=== PATIENT | female | born 1950 | race Caucasian/White ===

== ENCOUNTER → 2016-09-05 | Outpatient (CLI) | payer OTHER ==
[~2016-09-05] MED LIST: ALBU0.08 INH; BENZ0.5T9 PO; BISA10SU7 PR; BRIM0.15 OP; DPKSR/500 PO; HALO0.5T9 PO; MIRT15TA3 PO; NZRCR EXT; ZOLP10TA PO
--- NOTE | 2016-09-05 14:57 | MAMMOGRAPHY REPORT ---
BILATERAL DIGITAL SCREENING MAMMOGRAM WITH CAD: 09/05/2016 CLINICAL HISTORY: Routine screening. Patient has no complaints. TECHNIQUE: Bilateral CC, MLO and repeat left MLO views were obtained. Current study was also evalua alan with a Computer Aided Detection (CAD) system. COMPARISON: Comparison is made to exams dated: 09/01/2014 mammogram, 07/18/2012 mammogram, 06/13/2011 m ammogram, 06/06/2010 mammogram, 06/03/2009 mammogram - [facility], and 03/17/2008. BREAST COMPOSITION: There are scattered areas of fibroglandular density in both breasts. FINDINGS: The exam is suboptimal due to inability of the patient to tolerate positioning, particula rly with the left MLO view and she was held for the exam. There are stable benign coarse calcificat ions within the left breast. Mild vascular calcification bilaterally. No suspicious mass, microsoft solutions architect ural distortion or cluster of new, suspicious microcalcifications is seen. IMPRESSION: ACR BI-RADS CATEGORY 2: BENIGN There is no mammographic evidence of malignancy. A 1 year screening mammogram is recommended. The p atient will receive written notification of the results. Approximately 10% of breast cancers are not detected with mammography. A negative mammographic repor t should not delay biopsy if a clinically suggestive mass is present. Yoselin Blanco M.D. ay/:09/05/2016 14:40:46 Attending Technologist: Carina Goyal RT(R)(M), [facility] Accounts Payable Accountant: Laina Tyson RT(R)(M), [facility] letter sent: Normal 1/2 BI-RADS Code: ACR BI-RADS Category 2: Benign
== END | disposition home or self-care (01) ==
LOC: C.MAMM 13:12
PROVIDERS: ATTEND Nurse Practitioner Family
DX: Z12.31 Encounter for screening mammogram for malignant neoplasm of breast (principal)

== ENCOUNTER → 2017-01-17 | Outpatient (CLI) | payer OTHER ==
[2017-01-17 12:26] LABS: BASO % 0.4 %; BASO ABS # 0.03 K/uL (0-0.2); COMPLETE YES; HEMATOCRIT 43.6 % (37-47); IG% 0.4 %; LYMPH % 42.1 %; LYMPH ABS # 2.85 K/uL (1.2-3.4); MEAN CELL VOLUME 100.5 fL (80-100); MEAN CORPUSCULAR HEMOGLOBIN 34.6 pg (25-34); MEAN CORPUSCULAR HGB CONC 34.4 g/dl (32-36); MEAN PLATELET VOLUME 10.3 fL (7.4-10.4); MONO % 8.6 %; NEUT % 47.5 %; PLATELET COUNT 195 K/uL (130-400); RED BLOOD COUNT 4.34 M/uL (4.2-5.4); WHITE BLOOD COUNT 6.77 K/uL (4.8-10.8)
[2017-01-17 13:09] LABS: ALT/SGPT 18 U/L (12-78); AST/SGOT 13 U/L (15-37); BLOOD UREA NITROGEN 13 mg/dl (7-18); BUN/CREATININE RATIO 19.9 (10-20); CALCIUM 8.9 mg/dl (8.5-10.1); CARBON DIOXIDE 29 mmol/L (21-32); CHLORIDE 104 mmol/L (98-107); CREATININE 0.66 mg/dl (0.60-1.20); GLUCOSE 97 mg/dl (70-99); POTASSIUM 4.4 mmol/L (3.5-5.1); SODIUM 139 mmol/L (136-145)
[2017-01-17 13:20] LABS: ALB/GLOB RATIO 0.8 (0.9-2); ALKALINE PHOSPHATASE 74 U/L (45-117); CHOLESTEROL 231 mg/dl (0-200); CHOLESTEROL/HDL RATIO 5.8; HDL CHOLESTEROL 40 mg/dl; LDL CHOLESTEROL CALCULATED 121 mg/dl; TRIGLYCERIDES 350 mg/dl (0-150); VERY LOW DENSITY LIPOPROT CALC 70 mg/dl
== END | disposition home or self-care (01) ==
LOC: C.LABPVFM 08:52
PROVIDERS: ATTEND Nurse Practitioner Family
DX: Z79.899 Other long term (current) drug therapy (principal); R32 Unspecified urinary incontinence; E66.9 Obesity, unspecified; E78.00 Pure hypercholesterolemia, unspecified; E03.9 Hypothyroidism, unspecified

== ENCOUNTER → 2017-01-24 | Outpatient (CLI) | payer OTHER ==
[2017-01-24 17:57] LABS: URINE APPEARANCE CLEAR (CLEAR); URINE BILIRUBIN NEG (NEG); URINE COLOR DK YELLOW; URINE EPITHELIAL CELL AUTO >30 /lpf (0-5); URINE NITRITE NEG (NEG); URINE PH 6.5 (4.5-7.5); URINE SPECIFIC GRAVITY 1.024 (1.000-1.030); UROBILINOGEN NEG (NEG)
[2017-01-24 18:08] LABS: MANUAL MICROSCOPIC REQUIRED? NO; REVIEW REQ? YES
== END | disposition home or self-care (01) ==
LOC: C.LABPVFM 12:15
PROVIDERS: ATTEND Nurse Practitioner Family
DX: N39.41 Urge incontinence (principal)

== ENCOUNTER 2024-05-21 21:24 | Inpatient (IN) ==
[2024-05-21 22:04] LABS: Basophils # (auto) 0.02 K/uL (0.00-0.20); Basophils % (auto) 0.3 %; Eosinophils # (auto) 0.02 K/uL (0.00-0.50); Eosinophils % (auto) 0.3 %; Hematocrit (blood only) 39.2 % (37.0-47.0); Hemoglobin 12.7 g/dl (12.0-16.0); Immature Granulocytes # (auto) 0.04 K/uL (0.01-0.20); Immature Granulocytes % (auto) 0.7 %; Lymphocytes % (auto) 32.8 %; Mean Corpuscular Hemoglobin 32.2 pg (25.0-34.0); Mean Corpuscular Hgb Conc 32.4 g/dL (32.0-36.0); Mean Corpuscular Volume 99.5 fL (80.0-100.0); Mean Platelet Volume 10.1 fL (9.4-12.4); Monocytes % (auto) 13.8 %; Neutrophils # (auto) 3.01 K/uL (1.40-6.50); Neutrophils % (auto) 52.1 %; Platelet Count 195 K/uL (130-400); RDW Coefficient of Variation 15.2 % (11.5-14.5); RDW Standard Deviation 56.6 fL (36.4-46.3); Red Blood Count 3.94 M/uL (4.20-5.40); White Blood Count 5.79 K/ul (4.8-10.8)
[2024-05-21 22:24] LABS: Alanine Aminotransferase 16 U/L (7-52); Albumin Level 3.6 gm/dl (3.4-5.0); Alkaline Phosphatase 83 U/L (34-104); Anion Gap 8 (3-11); Aspartate Aminotransferase 25 U/L (13-39); BUN Creatinine Ratio 33.8 (10-20); Bilirubin,Total 0.3 mg/dl (0.2-1.0); Blood Urea Nitrogen 24 mg/dl (6-23); Calcium 8.2 mg/dl (8.6-10.3); Carbon Dioxide 26 mmol/L (21-32); Chloride 105 mmol/L (98-107); Creatinine Clr Calc Pharmacy 70.2 ml/min; Glucose 184 mg/dl (70-99(Fasting)); Sodium 139 mmol/L (136-145); Total Protein 6.5 gm/dl (6.0-8.3); Troponin I High Sensitivity 7.4 pg/ml (0-14)
[2024-05-21] MEDS: SODIUM CHLORIDE 0.9% 1,000 ML IV ONE (22:37)
[2024-05-21] MEDS: PIPERACILLIN/TAZOBACTAM 4.5 GM/100 ML BAG IV ONE (22:37)
--- NOTE | 2024-05-21 22:38 | History & Physical Report ---
"Date of Service May 21, 2024 Assessment & Plan (1) Sepsis: (2) Influenza A: (3) Acute hypoxic respiratory failure: (4) DM2 (diabetes mellitus, type 2): (5) GERD (gastroesophageal reflux disease): (6) Hypertension: (7) Schizoaffective disorder: Plan Aziza is a 74F w/ PMH of DM2, GERD, HTN, schizoaffective disorder, hypothyroidism, HLD, and urinary incontinence who presents for evaluation of generalized illness. Sepsis | Influenza A w/ AHRF - Patient with 3 days of congestion, rhinorrhea, cough and fatigue - SIRS positive: Tachycardia and tachypnea noted Now hemodynamically stable on 1L NS No leukocytosis, afebrile Urine and blood cultures obtained - Lactate 2.5, procal negative, MRSA nares ordered - Respiratory Biofire positive for Influenza A - CXR w/ hilar congestion vs infiltrate Suspect patient is aspiration risk, potential explanation - Examination with bilateral expiratory crackles at bases Changes, but does not resolve w/ cough - S/p Zosyn in ED, will continue empirically for sepsis coverage - Supportive measures for Flu A Tamiflu deferred as patient is > 48h from symptom onset Tylenol PRN Mucinex BID Duoneb PRN O2 supplementation PRN - No prior Echocardiogram or HFrEF noted LR ordered at 125 ml x 2 bags for fluid resuscitation in sepsis New systolic murmur on exam, Echocardiogram ordered for further evaluation Mental Health (Anxiety, Schizoaffective) - Continue home medications as prescribed Constipation - Continue home medications, held Loperamide GERD - Continue home PPI - Antiemetics PRN DM2 - Home medications held - BSG checks ACHS w/ SSI inpatient - AM A1c Glaucoma - Continue home drops Code: Full FENGI: IVF, HH/DM2 DVT: SCD Dispo: Med/Tele History of Present Illness Chief Complaint: Illness Primary Care Provider: BETZAIDA Marcum Aziza is a 74F w/ PMH of DM2, GERD, HTN, schizoaffective disorder, hypothyroidism, HLD, and urinary incontinence who presents for evaluation of generalized illness. Stared Sunday w/ cough and chest cold/congestion Has continued to progress throughout week Living at [facility] in [place] Noted to have Flu and PNA going around the facility Had a fever tonight at facility and was sent in Intermittent dyspnea noted at home Occasional chest discomfort (pressure), no radiation Has congestion and rhinorrhea Endorses nausea no emesis Not eating and drinking well Feels more constipation Urinating regularly w/o dysuria or frequency No changes in home medications Daughter at bedside for history support Allergies Allergy/AdvReac Type Severity Reaction Status Date / Time risperidone [From Risperdal] Allergy Unknown Verified 04/07/24 15:06 Home Medications Medication Instructions Recorded Confirmed Type acetaminophen 500 mg tablet 1,000 mg (2 x 500 mg) PO Q8H PRN 08/09/23 05/22/24 Rx pain #30 tabs benztropine 1 mg tablet 1 mg PO BID parkinsons #180 tabs 08/09/23 05/22/24 Rx calcium 600 mg (as 1 tab PO BID 08/09/23 05/22/24 History carbonate)-vitamin D3 10 mcg (400 unit) tablet (Calcium 600 + D(3)) divalproex 500 mg tablet,delayed 500 mg PO BID mood disorder #180 08/09/23 05/22/24 Rx release tabs docusate sodium 100 mg capsule 100 mg PO BID Constipation 08/09/23 05/22/24 History loratadine 10 mg tablet 10 mg PO DAILY allergy symptoms 08/09/23 05/22/24 Rx #30 tabs omega-3s 300 up-kbf-jop-other 1 cap PO DAILY supplement #30 caps 08/09/2305/10 Rx [id number] oil 1,000 mg capsule ([place]-3 Fish Oil) simethicone 125 mg chewable tablet 125 mg PO TID PRN gas #90 tabs 08/09/23 05/22/24 Rx travoprost 0.004 % eye drops 1 drp ophthalmic (eye) HS Glaucoma 08/09/23 05/22/24 History (Travatan Z) loperamide 2 mg capsule (Imodium 2 mg PO Q6H PRN loose stool #20 11/15/23 05/22/24 Rx A-D) caps prochlorperazine maleate 10 mg 10 mg PO Q8H nausea and vomiting 11/15/23 05/22/24 Rx tablet (Compazine) #20 tabs psyllium husk 3.4 gram/5.4 gram 1 tbsp PO DAILY #660 grams 01/14/24 05/22/24 Rx oral powder (Metamucil) levothyroxine 50 mcg tablet 50 mcg PO DAILY thyroid #90 tabs 02/05/24 05/22/24 Rx celecoxib 100 mg capsule 100 mg PO BID #60 caps 02/21/24 05/22/24 Rx mirabegron 50 mg tablet,extended 50 mg PO DAILY overactive bladder 02/21/24 05/22/24 Rx release 24 hr (Myrbetriq) #30 tabs omeprazole 20 mg capsule,delayed 20 mg PO BID #60 caps 02/21/24 05/22/24 Rx release atorvastatin 80 mg tablet 80 mg PO DAILY cholesterol #30 tabs 04/17/24 05/22/24 Rx dorzolamide 22.3 mg-timolol 6.8 1 drp ophthalmic (eye) BID 05/22/24 05/22/24 History mg/mL eye drops haloperidol 1 mg tablet 1 mg PO UD 05/22/24 05/22/24 History losartan 50 mg tablet 50 mg PO DAILY 05/22/24 05/22/24 History mirtazapine 30 mg tablet 30 mg PO DAILY 05/22/24 05/22/24 History polyethylene glycol 3350 17 17 g PO DAILY constipation 05/22/24 05/22/24 History gram/dose oral powder (Miralax) semaglutide 7 mg tablet (Rybelsus) 7 mg PO DAILY 05/22/24 05/22/24 History sennosides 8.6 mg tablet (senna) 8.6 mg PO DAILY PRN constipation 05/22/24 05/22/24 History Past Med/Surg History Problem List (Updated 05/22/24 @ 00:13 by Trina Bee PA-C) CAP (community acquired pneumonia) (Acute) Acute hypoxic respiratory failure (Acute) Influenza A (Acute) Sepsis (Acute) Peripheral edema UTI (urinary tract infection), uncomplicated Gastroenteritis Urinary incontinence Cognitive change Left hip pain Allergic rhinitis DM2 (diabetes mellitus, type 2) Constipation Chronic low back pain Facet arthritis of lumbar region GERD (gastroesophageal reflux disease) (Chronic) Arthritis Abdominal hernia (Chronic) Intermittent low back pain Hypertension Obesity Degenerative arthritis of knee, bilateral Schizoaffective disorder (Chronic) followed by psych Christy Clear Hypercholesterolemia (Chronic) Hypothyroidism (Chronic) Medical History History of anesthesia reaction Seizure Uterine cancer Osteopenia Gait disturbance Depression Surgical History History of colonoscopy History of cataract surgery History of bilateral salpingo-oophorectomy (BSO) History of hysterectomy Family History Father Cancer Heart disease Hypertension Stroke Prostate cancer Aunt Breast cancer Denies family history of Ovarian cancer Myocardial infarction Colorectal cancer Social History Smoking Status: Never smoker Second Hand Exposure: No; Do You Dip or Chew Tobacco: No; Hx Alcohol Use: No Hx Substance Use: No Preferred Language: Vincentian Communication Ability: Effective Communication Ability Comment: pt is able to sign own consents Visual Impairment: No Limitations Human Capital Analyst Required: No Beliefs That Will Affect Care: None marital status: / Current Living Situation: Personal Care Facility Current Living Situation Comment: Lives at [facility] current occupational status: retired Other Information That Helps Us Care for You: No Feels Safe at Home: Yes Safety Concerns: Feels Safe At This Time Childhood Exposure to Second-Hand Smoke: Yes Diet: regular caffeine: Yes Dental Care, Regularly: No Physical Activity Frequency: Does not Exercise Seatbelt Use: always Sunscreen Use: No Assistive Devices: Walker Physical Exam Physical Exam: Gen: NAD, non-toxic, somnolent but arousable to voice HEENT: Supple, no LAD, no thyromegaly, no JVD, dry mucous membranes Resp:Non-labored, scattered wheezing (resolves w/ cough), bilateral lower lobe crackles (unresolved w/ cough), oxymask intact CV:RRR, normal S1/S2, systolic murmur at RUSB Abd: Soft, non-distended, no TTP, normoactive bowels, no masses Extr: 2+ dp bilaterally, no edema Skin: No rashes lesions or erythema Results & Data Results & Data Vital Signs (Past 12 Hours) Vital Signs Temp Pulse Resp BP Pulse Ox O2 Del Method O2 Flow Rate 05/21/24 21:38 91 H 05/21/24 21:32 36.8 C 89 20 167/88 H 91 Nasal Cannula 4 Supervising Physician Co-Signing Physician Notes Attending addendum: I have physically seen this patient, have supervised the medical residents activities, and agree with the H&P unless as otherwise noted. Assessment and Plan: The patient is a 74-year-old female with past medical history including diabetes mellitus, GERD, hypertension, schizo affective disorder, hypothyroidism, hyperlipidemia, and urinary incontinence. She presents to the emergency department due to shortness of breath, dyspnea on exertion, and feeling generally ill and fatigued. #Sepsis/influenza A/acute respiratory failure with hypoxia- SIRS positive: Tachycardia/tachypnea/hypoxia Follow urine and blood cultures Lactate 2.5 MRSA swab Respiratory BioFire positive for influenza A Chest x-ray with infiltrate right lower lobe, suggestive of possible aspiration Received Zosyn 4.5 g IV in ED, and will continue every 8 hours DuoNebs every 2 hours as needed Oxygen supplementation to maintain pulse ox 92-94% Acetaminophen 650 mg by mouth every 6 hours as needed for mild pain or fever LR at 125 mL/h x 2 L Anxiety/schizoaffective disorder- Continue home medications: Divalproex, haloperidol, mirtazapine, benztropine Diabetes mellitus- Hold Rybelsus Place Accu-Cheks with NovoLog SSI as noted Hyperlipidemia- Continue atorvastatin Remaining orders and notations as noted Resident Activity Tracking Resident Involvement: Resident Care Provided Care Provided: Adult Hospital Medicine (4) DM2 (diabetes mellitus, type 2) Diabetes mellitus complication status: without complication Diabetes mellitus usp insulin use: without long term care pharmacist use Qualified Code(s): E11.9 - Type 2 diabetes mellitus without complications (6) Hypertension Hypertension type: primary hypertension Qualified Code(s): I10 - Essential (primary) hypertension (7) Schizoaffective disorder Schizoaffective disorder type: unspecified Qualified Code(s): F25.9 - Schizoaffective disorder, unspecified"
[2024-05-21 22:52] LABS: Adenovirus PCR Not Detected (NotDetected); Bordetella parapertussis PCR Not Detected (NotDetected); Bordetella pertussis PCR Not Detected (NotDetected); Chlamydia pneumoniae PCR Not Detected (NotDetected); Coronavirus 229E PCR Not Detected (NotDetected); Coronavirus CoV-2 (COVID19)PCR Not Detected (NotDetected); Coronavirus HKU1 PCR Not Detected (NotDetected); Coronavirus NL63 PCR Not Detected (NotDetected); Coronavirus OC43PCR Not Detected (NotDetected); Human Metapneumovirus PCR Not Detected (NotDetected); Influenza A (H3) PCR DETECTED (NotDetected); Influenza B PCR Not Detected (NotDetected); Mycoplasma pneumoniae PCR Not Detected (NotDetected); Parainfluenza Virus 1 PCR Not Detected (NotDetected); Parainfluenza Virus 2 PCR Not Detected (NotDetected); Parainfluenza Virus 3 PCR Not Detected (NotDetected); Parainfluenza Virus 4 PCR Not Detected (NotDetected); Respiratory Syncytial VirusPCR Not Detected (NotDetected); Rhinovirus/Enterovirus PCR Not Detected (NotDetected)
--- NOTE | 2024-05-21 23:08 | XRay Report ---
Exam(s): XR CXR 1 VIEW EXAM: XR Chest, 1 View CLINICAL HISTORY: Reason for exam: Sepsis. TECHNIQUE: Frontal view of the chest. COMPARISON: 04/06/2024 FINDINGS: Lungs: Right infrahilar congestion versus infiltrate. The left lung is clear. Pleural space: No pleural effusion. No pneumothorax. Heart: Unremarkable. No cardiomegaly. IMPRESSION: Right infrahilar congestion versus infiltrate. Electronically signed by: Andrew Prakash MD 05/21/24 23:07 PM
--- NOTE | 2024-05-22 00:06 | Emergency Department Note ---
History of Present Illness General Chief complaint: Illness Stated complaint: ILLNESS, FEVER, COUGH Time Seen by Provider: 05/21/24 21:33 History of Present Illness Aziza is a 74F w/ PMH of DM2, GERD, HTN, schizoaffective disorder, hypothyroidism, HLD, and urinary incontinence who presents for evaluation of generalized illness. Patient complains of fever, chills, cough, congestion and generalized illness for the past several days. EMS states that the sats were in the mid 80s and temperature was 101.9. custodial gave Tylenol prior to transport here. Patient is denies chest pain, abdominal pain, vomiting, diarrhea. Daughter is present for the history. Home Medications Medication Instructions Recorded Confirmed Type psyllium 3.4 gram/5.8 gram oral g PO 07/21/20 04/07/24 History powder acetaminophen 500 mg tablet 1,000 mg (2 x 500 mg) PO Q8H PRN 08/09/23 04/07/24 Rx pain #30 tabs alprazolam 0.25 mg tablet 0.25 mg PO DAILY PRN anxiety #10 08/09/23 04/07/24 Rx tabs benzocaine 15 mg-menthol 2.6 mg 1 zia mucous membrane .COMPLEX PRN 08/09/23 04/07/24 Rx lozenges (Cepacol Sore Throat sore throat #16 ea (benzocaine-menthol)) benztropine 1 mg tablet 1 mg PO BID parkinsons #180 tabs 08/09/23 04/07/24 Rx calcium 600 mg (as 1 tab PO BID 08/09/23 04/07/24 History carbonate)-vitamin D3 10 mcg (400 unit) tablet (Calcium 600 + D(3)) dextromethorphan polistirex 30 30 mg (5 mL) PO Q12H PRN cough #5 08/09/23 04/07/24 Rx mg/5 mL oral susp ext.release 12hr mL (Delsym 12 hour) dextromethorphan-guaifenesin 5 5 ml PO Q4H PRN cough #500 mL 08/09/23 04/07/24 Rx mg-100 mg/5 mL oral liquid (Mucinex Fast-Max DM Max) divalproex 500 mg tablet,delayed 500 mg PO BID mood disorder #180 08/09/23 04/07/24 Rx release tabs docusate sodium 100 mg capsule 100 mg PO BID Constipation 08/09/23 04/07/24 History dorzolamide 2 %-timolol 0.5 % (PF) 1 drp ophthalmic (eye) BID 08/09/23 04/07/24 Rx eye drops Glaucoma #10 mL haloperidol 0.5 mg tablet 0.5 mg PO QAM mood disorder #90 08/09/23 04/07/24 Rx tabs haloperidol 1 mg tablet 1 mg PO QPM mood disorder #30 tabs 08/09/23 04/07/24 Rx hydroxyzine pamoate 25 mg capsule 25 mg PO DAILY PRN anxiety #30 caps 08/09/23 04/07/24 Rx loratadine 10 mg tablet 10 mg PO DAILY allergy symptoms 08/09/23 04/07/24 Rx #30 tabs mirtazapine 15 mg tablet 15 mg PO HS mood disorder #90 tabs 08/09/23 04/07/24 Rx omega-3s 300 [id number]-[id number] 1 cap PO DAILY supplement #30 caps 08/09/23 04/07/24 Rx [id number] oil 1,000 mg capsule (Concepcion-3 Fish Oil) polyethylene glycol 3350 17 17 g PO DAILY PRN constipation 08/09/23 04/07/24 Rx gram/dose oral powder (Miralax) #119 grams sennosides 8.6 mg tablet (senna) 8.6 mg PO .QOD constipation #60 08/09/23 04/07/24 Rx tabs sennosides 8.6 mg tablet (senna) 8.6 mg PO QAM constipation #30 tabs 08/09/23 04/07/24 Rx simethicone 125 mg chewable tablet 125 mg PO TID PRN gas #90 tabs 08/09/23 04/07/24 Rx travoprost 0.004 % eye drops 1 drp ophthalmic (eye) HS Glaucoma 08/09/23 04/07/24 History (Travatan Z) diclofenac sodium 1 % topical gel 4 g topical TID pain #100 grams 11/15/23 04/07/24 Rx (Arthritis Pain (diclofenac)) loperamide 2 mg capsule (Imodium 2 mg PO Q6H PRN loose stool #20 11/15/23 04/07/24 Rx A-D) caps prochlorperazine maleate 10 mg 10 mg PO Q8H nausea and vomiting 11/15/23 04/07/24 Rx tablet (Compazine) #20 tabs fluticasone propionate 50 1 spray intranasal HS PRN allergy 12/14/23 04/07/24 Rx mcg/actuation nasal symptoms #16 grams spray,suspension furosemide 20 mg tablet 20 mg PO .COMPLEX #3 tabs 01/12/24 04/07/24 Rx psyllium husk 3.4 gram/5.4 gram 1 tbsp PO DAILY #660 grams 01/14/24 04/07/24 Rx oral powder (Metamucil) levothyroxine 50 mcg tablet 50 mcg PO DAILY thyroid #90 tabs 02/05/24 04/07/24 Rx celecoxib 100 mg capsule 100 mg PO BID #60 caps 02/21/24 04/07/24 Rx mirabegron 50 mg tablet,extended 50 mg PO DAILY overactive bladder 02/21/24 04/07/24 Rx release 24 hr (Myrbetriq) #30 tabs omeprazole 20 mg capsule,delayed 20 mg PO BID #60 caps 02/21/24 04/07/24 Rx release losartan 50 mg tablet 50 mg PO DAILY Hypertension #30 03/20/24 04/07/24 Rx tabs atorvastatin 80 mg tablet 80 mg PO DAILY cholesterol #30 tabs 04/17/24 Rx semaglutide 7 mg tablet (Rybelsus) See Rx Instructions .Route 05/12/24 Rx .COMPLEX #30 tabs Allergies Allergy/AdvReac Type Severity Reaction Status Date / Time risperidone [From Risperdal] Allergy Unknown Verified 04/07/24 15:06 Past Med/Surg History Problem List (Updated 05/22/24 @ 00:13 by Trina Bee PA-C) CAP (community acquired pneumonia) (Acute) Acute hypoxic respiratory failure (Acute) Influenza A (Acute) Sepsis (Acute) Peripheral edema UTI (urinary tract infection), uncomplicated Gastroenteritis Urinary incontinence Cognitive change Left hip pain Allergic rhinitis DM2 (diabetes mellitus, type 2) Constipation Chronic low back pain Facet arthritis of lumbar region GERD (gastroesophageal reflux disease) (Chronic) Arthritis Abdominal hernia (Chronic) Intermittent low back pain Hypertension Obesity Degenerative arthritis of knee, bilateral Schizoaffective disorder (Chronic) followed by psych Christy Clear Hypercholesterolemia (Chronic) Hypothyroidism (Chronic) Medical History History of anesthesia reaction Seizure Uterine cancer Osteopenia Gait disturbance Depression Surgical History History of colonoscopy History of cataract surgery History of bilateral salpingo-oophorectomy (BSO) History of hysterectomy Family History Father Cancer Heart disease Hypertension Stroke Prostate cancer Aunt Breast cancer Denies family history of Ovarian cancer Myocardial infarction Colorectal cancer Social History Smoking Status: Never smoker Second Hand Exposure: No; Do You Dip or Chew Tobacco: No; Hx Alcohol Use: No Hx Substance Use: No Preferred Language: Japanese Communication Ability: Effective Communication Ability Comment: pt is able to sign own consents Visual Impairment: No Limitations Farm [employer] Required: No Beliefs That Will Affect Care: None marital status: / Current Living Situation: Personal Care Facility Current Living Situation Comment: Lives at [facility] current occupational status: retired Feels Safe at Home: Yes Childhood Exposure to Second-Hand Smoke: Yes Diet: regular caffeine: Yes Dental Care, Regularly: No Physical Activity Frequency: Does not Exercise Seatbelt Use: always Sunscreen Use: No Review of Systems A total of 10 systems reviewed and were otherwise negative Physical Exam Vital Signs Vital Signs - 24 hr 05/21/24 21:32 05/21/24 21:38 05/21/24 22:07 Temperature 36.8 C Temperature Source Oral Pulse Rate 89 91 H Pulse Rate [Apical] Pulse Rate from SpO2 Sensor Respiratory Rate 20 Blood Pressure 167/88 H 145/73 H Blood Pressure [Right Arm] Blood Pressure Mean 114 77 Blood Pressure Mean [Right Arm] Blood Pressure Position Lying Pulse Oximetry 91 Oxygen Delivery Method Nasal Cannula Oxygen Flow Rate 4 Sepsis Recent Fever Within 48 Hours Yes Sepsis New/Unexplained Change in Mental Status N/A Sepsis Action Taken by Nursing No Action Required 05/21/24 22:15 05/21/24 22:36 05/21/24 22:42 Temperature Temperature Source Pulse Rate 83 82 83 Pulse Rate [Apical] Pulse Rate from SpO2 Sensor 83 82 83 Respiratory Rate 27 H 25 H 23 Blood Pressure 123/65 132/79 Blood Pressure [Right Arm] Blood Pressure Mean 84 96 Blood Pressure Mean [Right Arm] Blood Pressure Position Pulse Oximetry 95 98 98 Oxygen Delivery Method Oxymask Oxymask Oxygen Flow Rate 1 1 Sepsis Recent Fever Within 48 Hours Sepsis New/Unexplained Change in Mental Status Sepsis Action Taken by Nursing 05/21/24 22:45 05/21/24 22:45 05/21/24 22:45 Temperature Temperature Source Pulse Rate Pulse Rate [Apical] Pulse Rate from SpO2 Sensor Respiratory Rate Blood Pressure 130/90 130/90 130/90 Blood Pressure [Right Arm] Blood Pressure Mean 100 100 100 Blood Pressure Mean [Right Arm] Blood Pressure Position Pulse Oximetry Oxygen Delivery Method Oxygen Flow Rate Sepsis Recent Fever Within 48 Hours Sepsis New/Unexplained Change in Mental Status Sepsis Action Taken by Nursing 05/21/24 23:30 Temperature Temperature Source Pulse Rate Pulse Rate [Apical] 87 Pulse Rate from SpO2 Sensor Respiratory Rate 23 Blood Pressure Blood Pressure [Right Arm] 159/65 H Blood Pressure Mean Blood Pressure Mean [Right Arm] 96 Blood Pressure Position Pulse Oximetry 96 Oxygen Delivery Method Oxymask Oxygen Flow Rate 1 Sepsis Recent Fever Within 48 Hours Sepsis New/Unexplained Change in Mental Status Sepsis Action Taken by Nursing VITALS: Vitals are noted on the nurse's note and reviewed by myself. Vital signs reviewed. GENERAL: Elderly female who appears ill, nondiaphoretic, well-developed well- nourished. SKIN: The skin was without rashes, erythema, edema, or bruising. There is no tenting of the skin. Capillary reflex less than 2 seconds. HEAD: Normocephalic atraumatic. EARS: External auditory canals clear EYES: Pupils equal round and reactive to light and accommodation. Conjunctivae without injection, sclerae without icterus. Extraocular movements intact. NOSE: Patent, no discharge. MOUTH: Mucous membranes moist. Pharynx without erythema or exudate. Uvula midline. Airway patent. Tongue does not deviate. NECK: Supple without nuchal rigidity. No lymphadenopathy. No thyromegaly. Cervical spine is nontender. No JVD. HEART: Regular rate and rhythm LUNGS: Mild diffuse and expiratory wheeze. No retractions or accessory muscle use. ABDOMEN: Positive bowel sounds x 4. Normal tympanic percussion. Soft, nontender, without masses or organomegaly. Marquis sign negative. No guarding or rebound tenderness. No CVA tenderness MUSCULOSKELETAL: No muscle atrophy noted. +1 pitting edema up to the mid tib- fib bilaterally unchanged per daughter NEURO: Patient was alert and oriented to person place and time. Normal sensation to light and sharp touch. No focal neurological deficits. Course Administered Medications Discontinued Medications Piperacillin Sod/Tazobactam Sod (Zosyn) 4.5 gm in 100 mls @ 200 mls/hr IV NOW ONE; Protocol Stop: 05/21/24 22:16 Last Admin: 05/21/24 22:37 Dose: 200 mls/hr Documented By: CEF Sodium Chloride (Nss) 1,000 mls @ 999 mls/hr IV .Q1H1M ONE Stop: 05/21/24 22:47 Last Admin: 05/21/24 22:37 Dose: 999 mls/hr Documented By: CEF Medical Decision Making Medical Records Attestation: I reviewed the patient's medical records. Home Medications Current Medication List: was personally reviewed by me Laboratory Data Attestation: I reviewed the patient's lab results. 05/21/24 21:40 05/21/24 21:40 Lab Results 05/21/24 05/21/24 05/21/24 Range/Units 21:40 21:45 22:34 WBC 5.79 (4.8-10.8) K/ul RBC 3.94 L (4.20-5.40) M/uL Hgb 12.7 (12.0-16.0) g/dl Hct 39.2 (37.0-47.0) % MCV 99.5 (80.0-100.0) fL MCH 32.2 (25.0-34.0) pg MCHC 32.4 (32.0-36.0) g/dL RDW Std Deviation 56.6 H (36.4-46.3) fL RDW Coeff of Teofilo 15.2 H (11.5-14.5) % Plt Count 195 (130-400) K/uL MPV 10.1 (9.4-12.4) fL Immature Gran % (Auto) 0.7 % Neut % (Auto) 52.1 % Lymph % (Auto) 32.8 % Maries % (Auto) 13.8 % Eos % (Auto) 0.3 % Baso % (Auto) 0.3 % Neut # (Auto) 3.01 (1.40-6.50) K/uL Lymph # (Auto) 1.90 (1.20-3.40) K/uL Maries # (Auto) 0.80 H (0.11-0.59) K/uL Eos # (Auto) 0.02 (0.00-0.50) K/uL Baso # (Auto) 0.02 (0.00-0.20) K/uL Immature Gran # (Auto) 0.04 (0.01-0.20) K/uL Sodium 139 (136-145) mmol/L Potassium 4.0 (3.5-5.1) mmol/L Chloride 105 (98-107) mmol/L Carbon Dioxide 26 (21-32) mmol/L Anion Gap 8 (3-11) BUN 24 H (6-23) mg/dl Creatinine 0.71 (0.6-1.2) mg/dl Est Cr Clr Drug Dosing 70.2 ml/min eGFR 88.61 BUN/Creatinine Ratio 33.8 H (10-20) Glucose 184 H (70-99(Fasting)) mg/dl Lactate 2.4 H* (0.4-2.0) mmol/L Calcium 8.2 L (8.6-10.3) mg/dl Magnesium 2.0 (1.7-2.4) mg/dl Total Bilirubin 0.3 (0.2-1.0) mg/dl Direct Bilirubin TNP AST 25 (13-39) U/L ALT 16 (7-52) U/L Alkaline Phosphatase 83 (34-104) U/L Troponin I High Sens 7.4 (0-14) pg/ml Total Protein 6.5 (6.0-8.3) gm/dl Albumin 3.6 (3.4-5.0) gm/dl Procalcitonin 0.03 (0-0.5) ng/ml Adenovirus (PCR) Not Detected (NotDetected) B. pertussis DNA (PCR) Not Detected (NotDetected) B.parapertussis DNA PCR Not Detected (NotDetected) C. pneumoniae DNA (PCR) Not Detected (NotDetected) Coronavirus OC43 (PCR) Not Detected (NotDetected) Coronavirus HKU1 (PCR) Not Detected (NotDetected) Coronavirus 229E (PCR) Not Detected (NotDetected) SARS-CoV-2 (PCR) Not Detected (NotDetected) Coronavirus NL63 (PCR) Not Detected (NotDetected) Human Metapneumovir PCR Not Detected (NotDetected) Influenza A (H3) PCR DETECTED A (NotDetected) Influenza Type B (PCR) Not Detected (NotDetected) M. pneumoniae (PCR) Not Detected (NotDetected) Parainfluenza 1 (PCR) Not Detected (NotDetected) Parainfluenza 2 (PCR) Not Detected (NotDetected) Parainfluenza 3 (PCR) Not Detected (NotDetected) Parainfluenza 4 (PCR) Not Detected (NotDetected) RSV (PCR) Not Detected (NotDetected) Entero/Rhino (PCR) Not Detected (NotDetected) Imaging Data Attestation: I personally reviewed and interpreted this imaging study as follows: Radiologist's Impression: Chest X-Ray 05/21/24 21:47 Exam(s): XR CXR 1 VIEW EXAM: XR Chest, 1 View CLINICAL HISTORY: Reason for exam: Sepsis. TECHNIQUE: Frontal view of the chest. COMPARISON: 04/06/2024 FINDINGS: Lungs: Right infrahilar congestion versus infiltrate. The left lung is clear. Pleural space: No pleural effusion. No pneumothorax. Heart: Unremarkable. No cardiomegaly. IMPRESSION: Right infrahilar congestion versus infiltrate. Electronically signed by: Andrew Prakash MD 05/21/24 23:[address] [facility] Narrative Prior records/ancillary studies reviewed. Triage Nursing notes reviewed. Additional history obtained from Nursing The patient's history was concerning for fever. Differential diagnosis: Etiologies such as viral syndrome, otitis, pharyngitis, pneumonia, influenza, meningitis, urinary tract infection, sepsis, bacteremia, as well as others were entertained. Physical examination: As above ER treatment provided: An order was placed for continuous cardiac monitoring. The monitor shows a rate of 60-100 with a sinus rhythm per my interpretation. Septic workup was initiated IV fluids, Zosyn History was also obtained from the daughter who is present. Prior outpatient family care doctor notes were reviewed. On reassessment the patient felt better. Diagnostics interpreted by me: ECG: Ordered for weakness EKG: Normal sinus, poor baseline, no acute ST-T wave changes, rate of 89. Impression normal sinus rhythm poor baseline independently interpreted by myself The labs Independently Interpreted by myself revealed no worrisome leukocytosis, negative procalcitonin, positive influenza Blood cultures pending Slightly elevated lactic Imaging studies: X-ray was reviewed and read by radiology Consultation: A consultation was placed with hospitalist. The case was discussed and diagnostics were reviewed. The patient was evaluated in the ER for further treatment. This appears to be consistent with pneumonia. Patient started on antibiotics. Flu finally came back positive. Medicine was consulted and the case was discussed. Patient was admitted to the medical service. By the evaluation outlined above emergent etiologies such as otitis, pharyngitis, meningitis, urinary tract infection, bacteremia, as well as others were deemed relatively unlikely. The pt informed about the findings as listed above. All questions were answered and pleased with the treatment. The chart was completed utilizing [employer] Speech voice recognition software. Grammatical errors, random word insertions, pronoun errors, and incomplete sentences are an occassional consequence of this system due to software limitations, ambient noise, and hardware issues. Any formal questions or concerns about the content, text, or information contained within the body of this dictation should be directly addressed to the physician emergency medicine physician assistant for clarification. Impression & Plan Influenza A, Sepsis, Acute hypoxic respiratory failure, CAP (community acquired pneumonia) Discharge Plan Visit Data Chief Complaint: Illness Stated Complaint: ILLNESS, FEVER, COUGH ED Provider: Lai Finch ED Midlevel Provider: Trina Bee Discharge Problem: Influenza A, Sepsis, Acute hypoxic respiratory failure, CAP (community acquired pneumonia) Patient Disposition: Admitted As Inpatient Condition: Fair Forms Stand Alone Forms: [facility] Prescriptions Prescriptions: No Action haloperidol 0.5 mg tablet 0.5 mg PO QAM Qty: 90 4RF Rx Instructions: Take one tablet by mouth once daily in the AM for mood. benztropine 1 mg tablet 1 mg PO BID Qty: 180 2RF Rx Instructions: Take one tablet by mouth twice a day. calcium carbonate-vitamin D3 [Calcium 600 + D(3)] 600 mg-10 mcg (400 unit) tablet 1 tab PO BID Rx Instructions: Take one tablet by mouth twice a day. divalproex 500 mg tablet,delayed release (DR/EC) 500 mg PO BID Qty: 180 1RF Rx Instructions: Take one tablet by mouth twice daily. docusate sodium 100 mg capsule 100 mg PO BID Rx Instructions: Take one capsule by mouth twice daily. dorzolamide-timolol (PF) 2-0.5 % drops 1 drp OP BID Qty: 10 2RF Rx Instructions: Instill 1 drop into each eye twice daily. haloperidol 1 mg tablet 1 mg PO QPM Qty: 30 2RF Rx Instructions: Take one tablet by mouth once daily at night for mood. loratadine 10 mg tablet 10 mg PO DAILY Qty: 30 11RF Rx Instructions: Take one tablet by mouth once daily. mirtazapine 15 mg tablet 15 mg PO HS Qty: 90 1RF Rx Instructions: Take one tablet by mouth at bedtime. Concepcion-3 Fish Oil 300-1,000 mg capsule 1 cap PO DAILY Qty: 30 5RF Rx Instructions: Take one capsule by mouth daily. sennosides [senna] 8.6 mg tablet 8.6 mg PO .QOD Qty: 60 5RF Rx Instructions: Take one tablet by mouth every other day in the PM for constipation. hydroxyzine pamoate 25 mg capsule 25 mg PO DAILY PRN (Reason: anxiety) Qty: 30 3RF Rx Instructions: Take one capsule by mouth daily as needed for anxiety when traveling in a car. sennosides [senna] 8.6 mg tablet 8.6 mg PO QAM Qty: 30 0RF Rx Instructions: Take one tablet by mouth once daily in the AM for constipation. Travatan Z 0.004 % drops 1 drp OPHTHALMIC (EYE) HS Rx Instructions: Instill 1 drop into each eye at bedtime. acetaminophen 500 mg tablet 1,000 mg PO Q8H PRN (Reason: pain) Qty: 30 0RF Rx Instructions: Take two tablets (1000MG) by mouth every 8HRS as needed for pain. alprazolam 0.25 mg tablet 0.25 mg PO DAILY PRN (Reason: anxiety) Qty: 10 3RF Rx Instructions: Take one tablet by mouth once daily as needed for anxiety in the car. dextromethorphan polistirex [Delsym 12 hour] 30 mg/5 mL suspension,extended rel 12 hr 30 mg PO Q12H PRN (Reason: cough) Qty: 5 3RF Rx Instructions: Take 5ML by mouth every 12HRS as needed for cough. Cepacol Sore Throat (kimo-men) 15-2.6 mg lozenge 1 zia mucous membrane .COMPLEX PRN (Reason: sore throat) Qty: 16 0RF Rx Instructions: 1 zia to affected mucosal area Take as per package Instructions for sore throat PRN; dextromethorphan-guaifenesin [Mucinex Fast-Max DM Max] 5-100 mg/5 mL liquid 5 ml PO Q4H PRN (Reason: cough) Qty: 500 0RF Rx Instructions: Give 2.5ML-5ML by mouth every 4HRS as needed for cough. polyethylene glycol 3350 [Miralax] 17 gram/dose powder 17 g PO DAILY PRN (Reason: constipation) Qty: 119 0RF Rx Instructions: Mix 17GMS in 8oz of fluid and drink once daily as needed. simethicone 125 mg tablet,chewable 125 mg PO TID PRN (Reason: gas) Qty: 90 3RF Rx Instructions: Take one tablet by mouth three times daily as needed. diclofenac sodium [Arthritis Pain (diclofenac)] 1 % gel 4 g topical TID Qty: 100 2RF Rx Instructions: Apply across the top of the hips and low back three times daily. loperamide [Imodium A-D] 2 mg capsule 2 mg PO Q6H PRN (Reason: loose stool) Qty: 20 3RF Rx Instructions: Take one capsule by mouth every 2HRS as needed for diarrhea. MAX:8 capsules in 24HRS. prochlorperazine maleate [Compazine] 10 mg tablet 10 mg PO Q8H Qty: 20 2RF Rx Instructions: Take one tablet by mouth every 8HRS as needed. fluticasone propionate 50 mcg/actuation spray,suspension 1 spray intranasal HS PRN (Reason: allergy symptoms) Qty: 16 4RF Rx Instructions: Instill 1 spray into each nostril once daily at bedtime for allergies. levothyroxine 50 mcg tablet 50 mcg PO DAILY Qty: 90 3RF Rx Instructions: Take one tablet by mouth once daily. Myrbetriq 50 mg tablet extended release 24 hr 50 mg PO DAILY Qty: 30 11RF Rx Instructions: Take one tablet by mouth daily. celecoxib 100 mg capsule 100 mg PO BID Qty: 60 2RF Rx Instructions: pt aware dose change omeprazole 20 mg capsule,delayed release(DR/EC) 20 mg PO BID Qty: 60 5RF Rx Instructions: pt aware sig change losartan 50 mg tablet 50 mg PO DAILY Qty: 30 11RF Rx Instructions: Take one tablet by mouth daily. atorvastatin 80 mg tablet 80 mg PO DAILY Qty: 30 11RF Rx Instructions: Take one tablet by mouth daily. Rybelsus 7 mg tablet See Rx Instructions .ROUTE .COMPLEX Qty: 30 11RF Dose Instruction: TAKE ONE TABLET BY MOUTH DAILY. *DM* NOT ON AUTO PLEASE REORDER Rx Instructions: TAKE ONE TABLET BY MOUTH DAILY. psyllium 3.4 gram/5.8 gram powder PO furosemide 20 mg tablet 20 mg PO .COMPLEX Qty: 3 2RF Rx Instructions: 20 mg orally for 3 days; Metamucil 3.4 gram/5.4 gram powder 1 tbsp PO DAILY Qty: 660 1RF Rx Instructions: mix into at least 8 oz of water or juice before administering Referrals Referrals: Linda Quigley CRNP [Primary Care Provider] -
--- NOTE | 2024-05-22 00:18 | Emergency Department Note ---
ED Visit Note I was consulted by the Advanced Practice Provider. I personally made/approved the management plan and take responsibility for the patient management. I performed a substantive portion of the visit. This includes the aspects of: -History/Physical -MDM .
[2024-05-22] MEDS ORDERED: DEXTROSE 50% 50 ML SYRINGE IV PRN (01:20)
[2024-05-22] MEDS ORDERED: CARBOHYDRATES FOR HYPOGLYCEMIA PO PRN (01:20)
[2024-05-22] MEDS ORDERED: GLUCOSE 40% GEL 15 GM TUBE PO PRN (01:20)
[2024-05-22] MEDS ORDERED: POLYETHYLENE (MIRALAX) 17 GM PACK PO PRN (01:20)
[2024-05-22] MEDS ORDERED: ALPRAZolam 0.25 MG TABLET PO PRN (01:20)
[2024-05-22] MEDS ORDERED: GLUCOSE 10 TAB/TUBE PO PRN (01:20)
[2024-05-22] MEDS ORDERED: hydrOXYzine HCl 25 MG TAB PO PRN (01:20)
[2024-05-22] MEDS ORDERED: GLUCAGON FOR INJ 1 MG VIAL SQ PRN (01:20)
[2024-05-22] MEDS: LACTATED RINGER'S 1,000 ML IV SCH (01:22)
--- NOTE | 2024-05-22 02:44 | Billing Data ---
Date of Service May 22, 2024 Coding Level of Care Code 44256 INT INP/OBS CARE
[2024-05-22] MEDS: ACETAMINOPHEN 500 MG TAB PO PRN (03:39)
[2024-05-22] MEDS: ALBUT/IPRATROP 3MG/0.5MG NEB 3 ML VIAL NEB PRN (03:54)
[2024-05-22] MEDS: PIPERACILLIN/TAZOBACTAM 4.5 GM/100 ML BAG IV SCH (05:35)
[2024-05-22] MEDS: LEVOTHYROXINE SODIUM 50 MCG TABLET PO SCH (05:36)
[2024-05-22 06:25] LABS: Hematocrit (blood only) 35.7 % (37.0-47.0); Hemoglobin 11.5 g/dl (12.0-16.0); Mean Corpuscular Hemoglobin 32.3 pg (25.0-34.0); Mean Corpuscular Hgb Conc 32.2 g/dL (32.0-36.0); Mean Corpuscular Volume 100.3 fL (80.0-100.0); Platelet Count 159 K/uL (130-400); RDW Coefficient of Variation 15.2 % (11.5-14.5); RDW Standard Deviation 56.7 fL (36.4-46.3); Red Blood Count 3.56 M/uL (4.20-5.40); White Blood Count 5.15 K/ul (4.8-10.8)
[2024-05-22 06:49] LABS: Albumin Globulin Ratio 1.3 (0.9-2); BUN Creatinine Ratio 28.4 (10-20); Bilirubin,Total 0.3 mg/dl (0.2-1.0); Calcium 7.7 mg/dl (8.6-10.3); Creatinine Clr Calc Pharmacy 75.8 ml/min; Globulin 2.4 gm/dl (2.5-4.0); Potassium 3.5 mmol/L (3.5-5.1); Total Protein 5.4 gm/dl (6.0-8.3)
[2024-05-22] MEDS: DIVALPROEX DELAY RELEASE 500 MG TAB PO SCH (09:09)
[2024-05-22] MEDS: haloperidoL 0.5 MG TAB PO SCH (09:09)
[2024-05-22] MEDS: LOSARTAN POTASSIUM 50 MG TAB PO SCH (09:09)
[2024-05-22] MEDS: LORATADINE 10 MG TAB PO SCH (09:09)
[2024-05-22] MEDS: PANTOprazole 40 MG TAB PO SCH (09:09)
[2024-05-22] MEDS: VIBEGRON 75 MG TAB PO SCH (09:09)
[2024-05-22] MEDS: BENZTROPINE MESYLATE 1 MG TAB PO SCH (09:10)
[2024-05-22] MEDS: CELECOXIB 100 MG CAP PO SCH (09:10)
[2024-05-22] MEDS: guaiFENesin 600 MG TABCR PO SCH (09:10)
[2024-05-22] MEDS: DOCUSATE SODIUM 100 MG CAP PO SCH (09:14)
[2024-05-22] MEDS: INSULIN ASPART PER UNIT CHARGE SC SCH (09:14)
[2024-05-22] MEDS: SENNA 8.6 MG TAB PO SCH ×2 (09:14→22:35)
[2024-05-22] MEDS: DICLOFENAC SOD 1% GEL 100 GM TUBE EXT SCH (09:19)
[2024-05-22] MEDS: DORZOLAMIDE/TIMOLOL 22.3/6.8MG/ML 10 ML BTL OP SCH (09:19)
[2024-05-22 09:28] LABS: Estimated Average Glucose 154 mg/dl
--- NOTE | 2024-05-22 11:27 | Hospitalist Progress Note ---
"Date of Service May 22, 2024 Assessment & Plan (1) Sepsis: (2) Influenza A: (3) Acute hypoxic respiratory failure: (4) DM2 (diabetes mellitus, type 2): (5) GERD (gastroesophageal reflux disease): (6) Hypertension: (7) Schizoaffective disorder: Plan Aziza is a 74F w/ PMH of DM2, GERD, HTN, schizoaffective disorder, hypothyroidism, HLD, and urinary incontinence who presents for evaluation of generalized illness. Sepsis | Influenza A w/ AHRF - Patient with 3 days of congestion, rhinorrhea, cough and fatigue - SIRS positive: Tachycardia and tachypnea noted - Lactate 2.5, procal negative, MRSA nares ordered - Respiratory Biofire positive for Influenza A - CXR w/ hilar congestion vs infiltrate - Examination with bilateral expiratory crackles at bases - S/p Zosyn in ED, will continue empirically for sepsis coverage - Supportive measures for Flu A -Tamiflu deferred as patient is > 48h from symptom onset -Tylenol PRN -Mucinex BID -Duoneb PRN -O2 supplementation PRN New murmur on exam - No prior Echocardiogram or HFrEF noted -New systolic murmur on exam, Echocardiogram ordered for further evaluation Mental Health (Anxiety, Schizoaffective) - Continue home medications as prescribed Constipation - Continue home medications, held Loperamide GERD - Continue home PPI - Antiemetics PRN DM2 - Home medications held - BSG checks ACHS w/ SSI inpatient - AM A1c Glaucoma - Continue home drops Code: Full FENGI: IVF, HH/DM2 DVT: SCD Dispo: Med/Tele Admission and Anticipated Discharge Date Admission Date: May 21, 2024 Subjective patient seen and examined, feels a little better, still with runny nose and congestion Review of Systems Review of Systems: All systems reviewed are negative, apart from the ones contained in the history. Physical Exam Physical Exam: The patient is awake, alert and oriented 3, well developed and well nourished, normocephalic and atraumatic, lying in bed and in no acute distress. HEENT--PERRL, EOMI, mucous membranes and oropharynx mildly dry Neck--supple. No JVD. No bruits. Thyroid normal, trachea midline, no adenopathy. Heart--normal S1 and S2. No murmurs, rubs or gallops. Lungs--clear bilaterally, no respiratory distress, no accessory muscle use. Abdomen--normal bowel sounds and soft. Extremities--no cyanosis or clubbing. No edema. Dermatologic--normal skin turgor, normal color, no abnormal lymph nodes, no rowan h. Neurologic--cranial nerves II through XII grossly intact. Rheumatologic--normal range of motion. Psychiatric--normal affect. Results & Data Results & Data Vital Signs (Past 12 Hours) Vital Signs Temp Pulse Pulse Pulse Resp BP BP 05/22/24 07:44 98.4 F 75 18 145/78 H 05/22/24 03:57 97.9 F 74 22 160/82 H 05/22/24 03:55 75 18 05/22/24 02:00 05/22/24 01:24 98.8 F 81 20 150/72 H 05/22/24 01:21 79 05/22/24 00:55 81 21 91/70 L 05/21/24 23:30 87 23 159/65 H Pulse Ox O2 Del Method O2 Flow Rate 05/22/24 07:44 96 Room Air 05/22/24 03:57 05/22/24 03:55 90 Nasal Cannula 2 05/22/24 02:00 Oxymask 2 05/22/24 01:24 97 Oxymask 2 05/22/24 01:21 05/22/24 00:55 95 Oxymask 1 05/21/24 23:30 96 Oxymask 1 PG Care Time/CCT Total # of Minutes Spent Total Time Spent with Patient: Total time spent is greater than 50% in coordination of care (as documented) at patient's floor/unit and/or counseling patient: Coding Level of Care Code 84630 SUB INP/OBS CARE 2/35MIN Diagnoses Sepsis A41.9 Influenza A J10.1 Acute hypoxic respiratory failure J96.01 Type 2 diabetes mellitus without complication, without long-term current use of insulin E11.9 Diabetes mellitus long term care administrator insulin use: without penitentiary use Diabetes mellitus complication status: without complication GERD (gastroesophageal reflux disease) K21.9 Primary hypertension I10 Hypertension type: primary hypertension Schizoaffective disorder, unspecified type F25.9 Schizoaffective disorder type: unspecified Time Spent (min) 35 (4) DM2 (diabetes mellitus, type 2) Diabetes mellitus long term care administrator insulin use: without long term care administrator use Diabetes mellitus complication status: without complication Qualified Code(s): E11.9 - Type 2 diabetes mellitus without complications (6) Hypertension Hypertension type: primary hypertension Qualified Code(s): I10 - Essential (primary) hypertension (7) Schizoaffective disorder Schizoaffective disorder type: unspecified Qualified Code(s): F25.9 - Schizoaffective disorder, unspecified"
--- NOTE | 2024-05-22 12:38 | XCELERA ---
[id number]\[id number]
--- NOTE | 2024-05-22 15:14 | Electrocardiogram Report ---
Test Reason : Blood Pressure : */* mmHG Vent. Rate : 89 BPM Atrial Rate : 89 BPM P-R Int : 152 ms QRS Dur : 90 ms QT Int : 356 ms P-R-T Axes : 55 -6 32 degrees QTcB Int : 433 ms Poor data quality, interpretation may be adversely affected Normal sinus rhythm Abnormal ECG When compared with ECG of 06-Apr-2024 14:03, ST now depressed in Lateral leads Confirmed by Joao Cameron ([id number]) on 05/22/2024 3:13:57 PM Referred By: REFERRED SELF Confirmed By: Joao Cameron
--- NOTE | 2024-05-22 15:17 | Electrocardiogram Report ---
Test Reason : Blood Pressure : */* mmHG Vent. Rate : 79 BPM Atrial Rate : 79 BPM P-R Int : 154 ms QRS Dur : 74 ms QT Int : 376 ms P-R-T Axes : 56 -4 45 degrees QTcB Int : 431 ms Poor data quality, interpretation may be adversely affected Normal sinus rhythm Septal infarct , age undetermined Abnormal ECG When compared with ECG of 21-May-2024 21:46, (unconfirmed) Septal infarct is now Present ST no longer depressed in Lateral leads T wave inversion no longer evident in Lateral leads Confirmed by Joao Cameron ([id number]) on 05/22/2024 3:16:40 PM Referred By: REFERRED SELF Confirmed By: Joao Cameron
[2024-05-22] MEDS: MIRTAZAPINE TAB 15 MG TAB PO SCH (22:33)
[2024-05-22] MEDS: haloperidoL 1 MG TAB PO SCH (22:34)
[2024-05-22] MEDS: TRAVOPROST Z 0.004% OPH SOLN 2.5 ML BTL OP SCH (22:34)
[2024-05-23 07:53] LABS: Hematocrit (blood only) 37.3 % (37.0-47.0); Hemoglobin 12.2 g/dl (12.0-16.0); Mean Corpuscular Hemoglobin 32.4 pg (25.0-34.0); Mean Corpuscular Hgb Conc 32.7 g/dL (32.0-36.0); Mean Corpuscular Volume 98.9 fL (80.0-100.0); Mean Platelet Volume 9.9 fL (9.4-12.4); Platelet Count 160 K/uL (130-400); RDW Coefficient of Variation 15.3 % (11.5-14.5); RDW Standard Deviation 54.9 fL (36.4-46.3); Red Blood Count 3.77 M/uL (4.20-5.40); White Blood Count 5.22 K/ul (4.8-10.8)
[2024-05-23 08:07] LABS: BUN Creatinine Ratio 16.9 (10-20); Calcium 8.4 mg/dl (8.6-10.3); Creatinine Clr Calc Pharmacy 71.6 ml/min; Potassium 3.8 mmol/L (3.5-5.1)
--- NOTE | 2024-05-23 11:35 | Hospitalist Progress Note ---
"Date of Service May 23, 2024 Assessment & Plan (1) Sepsis: (2) Influenza A: (3) Acute hypoxic respiratory failure: (4) DM2 (diabetes mellitus, type 2): (5) GERD (gastroesophageal reflux disease): (6) Hypertension: (7) Schizoaffective disorder: Plan Aziza is a 74F w/ PMH of DM2, GERD, HTN, schizoaffective disorder, hypothyroidism, HLD, and urinary incontinence who presents for evaluation of generalized illness. Sepsis | Influenza A - Patient with 3 days of congestion, rhinorrhea, cough and fatigue - Respiratory Biofire positive for Influenza A - CXR w/ hilar congestion vs infiltrate - Examination with bilateral expiratory crackles at bases - S/p Zosyn in ED, will continue empirically for sepsis coverage - Supportive measures for Flu A -Tamiflu deferred as patient is > 48h from symptom onset -Tylenol PRN -Mucinex BID -Duoneb PRN -O2 supplementation PRN New murmur on exam - No prior Echocardiogram or HFrEF noted -New systolic murmur on exam, -Echocardiogram did not suggest any structural heart or valvular abnormality Mental Health (Anxiety, Schizoaffective) - Continue home medications as prescribed Constipation - Continue home medications, held Loperamide GERD - Continue home PPI - Antiemetics PRN DM2 - Home medications held - BSG checks ACHS w/ SSI inpatient - AM A1c Glaucoma - Continue home drops Code: Full FENGI: IVF, HH/DM2 DVT: SCD Dispo: Med/Tele Hopefully d/c in the next 24 to 48 hrs Admission and Anticipated Discharge Date Admission Date: May 21, 2024 Subjective patient seen and examined, feels a little better, still with runny nose and congestion Review of Systems Review of Systems: All systems reviewed are negative, apart from the ones contained in the history. Physical Exam Physical Exam: The patient is awake, alert and oriented 3, well developed and well nourished, normocephalic and atraumatic, lying in bed and in no acute distress. HEENT--PERRL, EOMI, mucous membranes and oropharynx mildly dry Neck--supple. No JVD. No bruits. Thyroid normal, trachea midline, no adenopathy. Heart--normal S1 and S2. No murmurs, rubs or gallops. Lungs--clear bilaterally, no respiratory distress, no accessory muscle use. Abdomen--normal bowel sounds and soft. Extremities--no cyanosis or clubbing. No edema. Dermatologic--normal skin turgor, normal color, no abnormal lymph nodes, no rash. Neurologic--cranial nerves II through XII grossly intact. Rheumatologic--normal range of motion. Psychiatric--normal affect. Results & Data Results & Data Vital Signs (Past 12 Hours) Vital Signs Temp Pulse Pulse Resp BP Pulse Ox O2 Del Method 05/23/24 08:05 87 05/23/24 07:48 99.7 F H 73 18 150/65 H 95 Room Air 05/23/24 04:00 98.1 F 70 18 116/65 94 Nasal Cannula 05/23/24 00:27 Nasal Cannula O2 Flow Rate 05/23/24 08:05 05/23/24 07:48 05/23/24 04:00 2 05/23/24 00:27 2 PG Care Time/CCT Total # of Minutes Spent Total Time Spent with Patient: Total time spent is greater than 50% in coordination of care (as documented) at patient's floor/unit and/or counseling patient: Coding Level of Care Code 22951 SUB INP/OBS CARE 2/35MIN Diagnoses Sepsis A41.9 Influenza A J10.1 Acute hypoxic respiratory failure J96.01 Type 2 diabetes mellitus without complication, without long-term current use of insulin E11.9 Diabetes mellitus machine long goods helper insulin use: without machine long goods helper use Diabetes mellitus complication status: without complication GERD (gastroesophageal reflux disease) K21.9 Primary hypertension I10 Hypertension type: primary hypertension Schizoaffective disorder, unspecified type F25.9 Schizoaffective disorder type: unspecified Time Spent (min) 35 (4) DM2 (diabetes mellitus, type 2) Diabetes mellitus machine long goods helper insulin use: without machine long goods helper use Diabetes mellitus complication status: without complication Qualified Code(s): E11.9 - Type 2 diabetes mellitus without complications (6) Hypertension Hypertension type: primary hypertension Qualified Code(s): I10 - Essential (primary) hypertension (7) Schizoaffective disorder Schizoaffective disorder type: unspecified Qualified Code(s): F25.9 - Schizoaffective disorder, unspecified"
[2024-05-23 22:17] LABS: Appearance Urine Clear (Clear); Bacteria Urine Automated None Seen (None Seen); Bilirubin Urine Negative (Negative); Blood Urine Negative (Negative); Cast Urine Automated 0-2 /lpf (0-2); Color Urine Yellow; Epithelial Cell Urine Auto 0-2 /hpf (0-2); Glucose Urine UA Negative (Negative); Ketones Urine Trace (Negative); Leukocyte Esterase Urine Trace (Negative); Nitrite Urine Negative (Negative); Protein Urine Negative (Negative); RBC Urine Automated 0-2 /hpf (0-2); Specific Gravity Urine 1.028 (1.000-1.030); Urobilinogen Urine Negative (Negative); WBC Urine Automated 0-5 /hpf (0-5); pH Urine 6.5 (4.5-7.5)
--- NOTE | 2024-05-24 11:35 | Hospitalist Progress Note ---
"Date of Service May 24, 2024 Assessment & Plan (1) Sepsis: (2) Influenza A: (3) Acute hypoxic respiratory failure: (4) DM2 (diabetes mellitus, type 2): (5) GERD (gastroesophageal reflux disease): (6) Hypertension: (7) Schizoaffective disorder: Marisela Ervin is a 74F w/ PMH of DM2, GERD, HTN, schizoaffective disorder, hypothyroidism, HLD, and urinary incontinence who presents for evaluation of generalized illness. Sepsis | Influenza A - Patient with 3 days of congestion, rhinorrhea, cough and fatigue - Respiratory Biofire positive for Influenza A - CXR w/ hilar congestion vs infiltrate - Examination with bilateral expiratory crackles at bases - S/p Zosyn in ED, will continue empirically for sepsis coverage - Supportive measures for Flu A -Tamiflu deferred as patient is > 48h from symptom onset -Tylenol PRN , sudafed -Mucinex BID -Duoneb PRN -O2 supplementation PRN New murmur on exam - No prior Echocardiogram or HFrEF noted -New systolic murmur on exam, -Echocardiogram did not suggest any structural heart or valvular abnormality Mental Health (Anxiety, Schizoaffective) - Continue home medications as prescribed Constipation - Continue home medications, held Loperamide GERD - Continue home PPI - Antiemetics PRN DM2 - Home medications held - BSG checks ACHS w/ SSI inpatient - AM A1c Glaucoma - Continue home drops Code: Full FENGI: IVF, HH/DM2 DVT: SCD Dispo: Med/Tele Hopefully d/c in the next 24 to 48 hrs Admission and Anticipated Discharge Date Admission Date: May 21, 2024 Subjective patient seen and examined, feels a little better, still with runny nose and congestion Review of Systems Review of Systems: All systems reviewed are negative, apart from the ones contained in the history. Physical Exam Physical Exam: The patient is awake, alert and oriented 3, well developed and well nourished, normocephalic and atraumatic, lying in bed and in no acute distress. HEENT--PERRL, EOMI, mucous membranes and oropharynx mildly dry Neck--supple. No JVD. No bruits. Thyroid normal, trachea midline, no adenopathy. Heart--normal S1 and S2. No murmurs, rubs or gallops. Lungs--clear bilaterally, no respiratory distress, no accessory muscle use. Abdomen--normal bowel sounds and soft. Extremities--no cyanosis or clubbing. No edema. Dermatologic--normal skin turgor, normal color, no abnormal lymph nodes, no rash. Neurologic--cranial nerves II through XII grossly intact. Rheumatologic--normal range of motion. Psychiatric--normal affect. Results & Data Results & Data Vital Signs (Past 12 Hours) Vital Signs Temp Pulse Pulse Resp BP Pulse Ox O2 Del Method 05/24/24 10:32 Room Air, Nasal Cannula 05/24/24 07:23 74 05/24/24 07:15 97.9 F 78 20 124/75 92 Nasal Cannula 05/24/24 04:41 97.9 F 78 20 97/59 L 90 Nasal Cannula 05/23/24 23:37 70 O2 Flow Rate 05/24/24 10:32 2 05/24/24 07:23 05/24/24 07:15 2 05/24/24 04:41 2 05/23/24 23:37 PG Care Time/CCT Total # of Minutes Spent Total Time Spent with Patient: Total time spent is greater than 50% in coordination of care (as documented) at patient's floor/unit and/or counseling patient: Coding Level of Care Code 65141 SUB INP/OBS CARE 235MIN Diagnoses Sepsis A41.9 Influenza A J10.1 Acute hypoxic respiratory failure J96.01 Type 2 diabetes mellitus without complication, without long-term current use of insulin E11.9 Diabetes mellitus podiatric physician insulin use: without custodial use Diabetes mellitus complication status: without complication GERD (gastroesophageal reflux disease) K21.9 Primary hypertension I10 Hypertension type: primary hypertension Schizoaffective disorder, unspecified type F25.9 Schizoaffective disorder type: unspecified Time Spent (min) 35 (4) DM2 (diabetes mellitus, type 2) Diabetes mellitus podiatric physician insulin use: without custodial use Diabetes mellitus complication status: without complication Qualified Code(s): E11.9 - Type 2 diabetes mellitus without complications (6) Hypertension Hypertension type: primary hypertension Qualified Code(s): I10 - Essential (primary) hypertension (7) Schizoaffective disorder Schizoaffective disorder type: unspecified Qualified Code(s): F25.9 - Schizoaffective disorder, unspecified"
--- NOTE | 2024-05-25 08:39 | XRay Report ---
XR chest 1V portable CLINICAL HISTORY: SOB, follow up COMPARISON STUDY: Chest radiograph May 21, 2024. FINDINGS: There is no pneumothorax or definite pleural effusion. Cardiomegaly is again noted. There i s pulmonary vascular congestion without overt pulmonary edema. Linear bibasilar densities favor atele ctasis. There is no definite consolidation to suggest pneumonia. IMPRESSION: 1. Linear bibasilar densities suggestive of atelectasis. No consolidation to suggest pneumonia. 2. Cardiomegaly. Pulmonary vascular congestion without overt pulmonary edema. ACT 112: Negative or not required by law. Electronically signed by: Mc Lira M.D. 05/25/2024 8:37 AM
--- NOTE | 2024-05-25 10:46 | Hospitalist Progress Note ---
"Date of Service May 25, 2024 Assessment & Plan (1) Sepsis: (2) Influenza A: (3) Acute hypoxic respiratory failure: (4) DM2 (diabetes mellitus, type 2): (5) GERD (gastroesophageal reflux disease): (6) Hypertension: (7) Schizoaffective disorder: Marisela Ervin is a 74F w/ PMH of DM2, GERD, HTN, schizoaffective disorder, hypothyroidism, HLD, and urinary incontinence who presents for evaluation of generalized illness. Sepsis | Influenza A - Patient with 3 days of congestion, rhinorrhea, cough and fatigue -Found to be hypoxic, currently on 4L oxyge - Respiratory Biofire positive for Influenza A - On admission,CXR w/ hilar congestion vs infiltrate, repeat x ray 05/25 shows some improvement - Got a few days of IV zosyn - Supportive measures for Flu A -Tamiflu deferred as patient is > 48h from symptom onset -Tylenol PRN , sudafed -Mucinex BID -Duoneb PRN -O2 supplementation PRN -Wean oxygen as tolerated -May need oxygen challenge prior to discharge (not on oxygen at home) New murmur on exam - No prior Echocardiogram or HFrEF noted -New systolic murmur on exam, -Echocardiogram did not suggest any structural heart or valvular abnormality Mental Health (Anxiety, Schizoaffective) - Continue home medications as prescribed Constipation - Continue home medications, held Loperamide GERD - Continue home PPI - Antiemetics PRN DM2 - Home medications held - BSG checks ACHS w/ SSI inpatient - AM A1c Glaucoma - Continue home drops Deconditioning Patient uses walker at baseline has been deconditioned in the hopsital PT/OT eval Code: Full FENGI: IVF, HH/DM2 DVT: SCD Dispo: Med/Tele Awaiting evaluation by PT, patient may benefit from rehab Admission and Anticipated Discharge Date Admission Date: May 21, 2024 Subjective patient seen and examined, feels a little better, still with runny nose and congestion Review of Systems Review of Systems: All systems reviewed are negative, apart from the ones contained in the history. Physical Exam Physical Exam: The patient is awake, alert and oriented 3, well developed and well nourished, normocephalic and atraumatic, lying in bed and in no acute distress. HEENT--PERRL, EOMI, mucous membranes and oropharynx mildly dry Neck--supple. No JVD. No bruits. Thyroid normal, trachea midline, no adenopathy. Heart--normal S1 and S2. No murmurs, rubs or gallops. Lungs--clear bilaterally, no respiratory distress, no accessory muscle use. Abdomen--normal bowel sounds and soft. Extremities--no cyanosis or clubbing. No edema. Dermatologic--normal skin turgor, normal color, no abnormal lymph nodes, no rash. Neurologic--cranial nerves II through XII grossly intact. Rheumatologic--normal range of motion. Psychiatric--normal affect. Results & Data Results & Data Vital Signs (Past 12 Hours) Vital Signs Temp Pulse Pulse Resp BP BP Pulse Ox 05/25/24 08:02 98.1 F 72 16 170/78 H 90 05/25/24 07:00 72 05/25/24 04:05 98.6 F 72 18 118/72 90 05/24/24 23:07 97.7 F 75 18 136/68 95 O2 Del Method O2 Flow Rate 05/25/24 08:02 Nasal Cannula 4 05/25/24 07:00 05/25/24 04:05 Nasal Cannula 3.5 05/24/24 23:07 Nasal Cannula 3 PG Care Time/CCT Total # of Minutes Spent Total Time Spent with Patient: Total time spent is greater than 50% in coordination of care (as documented) at patient's floor/unit and/or counseling patient: Coding Level of Care Code 04639 SUB INP/OBS CARE 2/35MIN Diagnoses Sepsis A41.9 Influenza A J10.1 Acute hypoxic respiratory failure J96.01 Type 2 diabetes mellitus without complication, without long-term current use of insulin E11.9 Diabetes mellitus intermediate insulin use: without intermediate use Diabetes mellitus complication status: without complication GERD (gastroesophageal reflux disease) K21.9 Primary hypertension I10 Hypertension type: primary hypertension Schizoaffective disorder, unspecified type F25.9 Schizoaffective disorder type: unspecified Time Spent (min) 35 (4) DM2 (diabetes mellitus, type 2) Diabetes mellitus intermediate insulin use: without long distance billing operator use Diabetes me llitus complication status: without complication Qualified Code(s): E11.9 - Type 2 diabetes mellitus without complications (6) Hypertension Hypertension type: primary hypertension Qualified Code(s): I10 - Essential (primary) hypertension (7) Schizoaffective disorder Schizoaffective disorder type: unspecified Qualified Code(s): F25.9 - Schizoaffective disorder, unspecified"
[2024-05-26 07:27] LABS: Hematocrit (blood only) 34.5 % (37.0-47.0); Mean Corpuscular Hemoglobin 32.1 pg (25.0-34.0); Mean Corpuscular Hgb Conc 31.9 g/dL (32.0-36.0); Mean Corpuscular Volume 100.6 fL (80.0-100.0); Mean Platelet Volume 10.3 fL (9.4-12.4); Platelet Count 177 K/uL (130-400); RDW Coefficient of Variation 15.2 % (11.5-14.5); RDW Standard Deviation 56.8 fL (36.4-46.3); Red Blood Count 3.43 M/uL (4.20-5.40); White Blood Count 6.15 K/ul (4.8-10.8)
[2024-05-26 07:46] LABS: BUN Creatinine Ratio 30.9 (10-20); Calcium 8.5 mg/dl (8.6-10.3); Creatinine Clr Calc Pharmacy 92.4 ml/min; Potassium 4.2 mmol/L (3.5-5.1)
[2024-05-26] MEDS: PROCHLORPERAZINE MALEATE 10 MG TAB PO PRN (08:20)
[2024-05-26] MEDS: PSEUDOEPHEDRINE HCL 30 MG TAB PO PRN (08:21)
[2024-05-26] MEDS: OSELTAMIVIR PHOSPHATE 75 MG CAP PO SCH (11:17)
--- NOTE | 2024-05-26 12:52 | Hospitalist Progress Note ---
"Date of Service May 26, 2024 Assessment & Plan (1) Sepsis: (2) Influenza A: (3) Acute hypoxic respiratory failure: (4) DM2 (diabetes mellitus, type 2): (5) GERD (gastroesophageal reflux disease): (6) Hypertension: (7) Schizoaffective disorder: Plan Aziza is a 74F w/ PMH of DM2, GERD, HTN, schizoaffective disorder, hypothyroidism, HLD, and urinary incontinence who presents for evaluation of generalized illness. Sepsis | Influenza A - Patient with 3 days of congestion, rhinorrhea, cough and fatigue -Found to be hypoxic, currently on 4L oxyge - Respiratory Biofire positive for Influenza A - On admission,CXR w/ hilar congestion vs infiltrate, repeat x ray 05/25 shows some improvement - Got a few days of IV zosyn - Supportive measures for Flu A -added tamiflu given patient was admitted for the flu/ -Tylenol PRN , sudafed -Mucinex BID -Duoneb PRN -O2 supplementation PRN -Wean oxygen as tolerated -May need oxygen challenge prior to discharge (not on oxygen at home) -will order overnight pulse ox study. currently requiring 2 liters at rest. New murmur on exam - No prior Echocardiogram or HFrEF noted -New systolic murmur on exam, -Echocardiogram did not suggest any structural heart or valvular abnormality Mental Health (Anxiety, Schizoaffective) - Continue home medications as prescribed Constipation - Continue home medications, held Loperamide GERD - Continue home PPI - Antiemetics PRN DM2 - Home medications held - BSG checks ACHS w/ SSI inpatient - AM A1c Glaucoma - Continue home drops Deconditioning Patient uses walker at baseline has been deconditioned in the hopsital PT/OT eval Code: Full FENGI: IVF, HH/DM2 DVT: SCD Dispo: Med/Tele Awaiting evaluation by PT, patient may benefit from rehab performed a chart review. Admission and Anticipated Discharge Date Admission Date: May 21, 2024 Subjective 74 yo female reports no new symptoms. She continues to require oxygen. Required 4 liters overnight. Physical Exam Physical Exam: The patient is awake, alert and oriented 3 HEENT--PERRL, EOMI, mucous membranes and oropharynx mildly dry Neck--supple. No JVD. No bruits. Thyroid normal, trachea midline, no adenopathy. Heart--normal S1 and S2. No murmurs, rubs or gallops. Lungs--clear bilaterally, no respiratory distress, no accessory muscle use. Abdomen--normal bowel sounds and soft. Extremities--no cyanosis or clubbing. No edema. Results & Data Results & Data Vital Signs (Past 12 Hours) Vital Signs Temp Pulse Pulse Resp BP BP Pulse Ox 05/26/24 11:28 05/26/24 11:09 36.5 C 69 16 93/62 L 97 05/26/24 07:43 36.4 C L 64 18 135/74 97 05/26/24 05:43 65 05/26/24 03:13 36.5 C 67 18 147/77 H 94 O2 Del Method O2 Flow Rate 05/26/24 11:28 Nasal Cannula 2 05/26/24 11:09 Nasal Cannula 3.5 05/26/24 07:43 Nasal Cannula 3.5 05/26/24 05:43 05/26/24 03:13 Nasal Cannula 3.5 PG Care Time/CCT Total # of Minutes Spent Total Time Spent with Patient: Total time spent is greater than 50% in coordination of care (as documented) at patient's floor/unit and/or counseling patient: Coding Level of Care Code 06866 SUB INP/OBS CARE 3/50MIN Diagnoses Sepsis A41.9 Influenza A J10.1 Acute hypoxic respiratory failure J96.01 Type 2 diabetes mellitus without complication, without long-term current use of insulin E11.9 Diabetes mellitus termite control service representative insulin use: without nursing home use Diabetes mellitus complication status: without complication GERD (gastroesophageal reflux disease) K21.9 Primary hypertension I10 Hypertension type: primary hypertension Schizoaffective disorder, unspecified type F25.9 Schizoaffective disorder type: unspecified (4) DM2 (diabetes mellitus, type 2) Diabetes mellitus nursing home insulin use: without nursing home use Diabetes mellitus complication status: without complication Qualified Code(s): E11.9 - Type 2 diabetes mellitus without complications (6) Hypertension Hypertension type: primary hypertension Qualified Code(s): I10 - Essential (primary) hypertension (7) Schizoaffective disorder Schizoaffective disorder type: unspecified Qualified Code(s): F25.9 - Schizoaffective disorder, unspecified"
[2024-05-27 07:37] LABS: Hematocrit (blood only) 35.8 % (37.0-47.0); Hemoglobin 11.3 g/dl (12.0-16.0); Mean Corpuscular Hemoglobin 31.3 pg (25.0-34.0); Mean Corpuscular Hgb Conc 31.6 g/dL (32.0-36.0); Mean Corpuscular Volume 99.2 fL (80.0-100.0); Mean Platelet Volume 9.8 fL (9.4-12.4); Platelet Count 234 K/uL (130-400); RDW Standard Deviation 54.6 fL (36.4-46.3); Red Blood Count 3.61 M/uL (4.20-5.40); White Blood Count 5.43 K/ul (4.8-10.8)
[2024-05-27 07:49] VITALS: RESP 18; TEMP 98.4
[2024-05-27 07:52] LABS: BUN Creatinine Ratio 30.5 (10-20); C Reactive Protein 4.7 mg/dl (0-0.5); Calcium 8.6 mg/dl (8.6-10.3); Creatinine Clr Calc Pharmacy 86.2 ml/min; Potassium 4.1 mmol/L (3.5-5.1)
[2024-05-27 09:59] VITALS: BP 147/77; O2SAT 92
[2024-05-27 15:24] VITALS: PULSE 59
--- NOTE | 2024-05-27 15:28 | Discharge Summary ---
"Discharge Summary Date of Service May 27, 2024 Principal Dx & Hospital Course #1 = Principal Diagnosis (1) Sepsis: (2) Influenza A: (3) Acute hypoxic respiratory failure: (4) DM2 (diabetes mellitus, type 2): (5) GERD (gastroesophageal reflux disease): (6) Hypertension: (7) Schizoaffective disorder: Plan Aziza is a 74F w/ PMH of DM2, GERD, HTN, schizoaffective disorder, hypothyroidism, HLD, and urinary incontinence who presents for evaluation of generalized illness. Sepsis | Influenza A - Patient with 3 days of congestion, rhinorrhea, cough and fatigue -Found to be hypoxic, currently on 4L oxyge - Respiratory Biofire positive for Influenza A - On admission,CXR w/ hilar congestion vs infiltrate, repeat x ray 05/25 shows some improvement - Got a few days of IV zosyn - Supportive measures for Flu A -added tamiflu given patient was admitted for the flu/ -Tylenol PRN , sudafed -Mucinex BID -Duoneb PRN -O2 supplementation PRN -Wean oxygen as tolerated -May need oxygen challenge prior to discharge (not on oxygen at home) -will order overnight pulse ox study. currently requiring 2 liters at rest. New murmur on exam - No prior Echocardiogram or HFrEF noted -New systolic murmur on exam, -Echocardiogram did not suggest any structural heart or valvular abnormality Mental Health (Anxiety, Schizoaffective) - Continue home medications as prescribed Constipation - Continue home medications, held Loperamide GERD - Continue home PPI - Antiemetics PRN DM2 - Home medications held - BSG checks ACHS w/ SSI inpatient - AM A1c Glaucoma - Continue home drops Deconditioning Patient uses walker at baseline has been deconditioned in the hopsital PT/OT eval Code: Full FENGI: IVF, HH/DM2 DVT: SCD Dispo: Med/Tele Awaiting evaluation by PT, patient may benefit from rehab performed a chart review. Admission HPI Per Admitting Provider Aziza is a 74F w/ PMH of DM2, GERD, HTN, schizoaffective disorder, hypothyroidism, HLD, and urinary incontinence who presents for evaluation of generalized illness. Stared Sunday w/ cough and chest cold/congestion Has continued to progress throughout week Living at [facility] in [place] Noted to have Flu and PNA going around the facility Had a fever tonight at facility and was sent in Intermittent dyspnea noted at home Occasional chest discomfort (pressure), no radiation Has congestion and rhinorrhea Endorses nausea no emesis Not eating and drinking well Feels more constipation Urinating regularly w/o dysuria or frequency No changes in home medications Daughter at bedside for history support Discharge Exam The patient is awake, alert and oriented 3 HEENT--PERRL, EOMI, mucous membranes and oropharynx mildly dry Neck--supple. No JVD. No bruits. Thyroid normal, trachea midline, no adenopathy. Heart--normal S1 and S2. No murmurs, rubs or gallops. Lungs--clear bilaterally, no respiratory distress, no accessory muscle use. Abdomen--normal bowel sounds and soft. Extremities--no cyanosis or clubbing. No edema. Discharge Plan Discharge Items Patient Disposition: Home - Home Health Services Reason For Visit: PNA W/ HYPOXIA Discharge Diagnosis: Influenza Condition on Discharge: Fair Activity: Resume your previous activity Non-emergency contact: Primary Care Provider Call non-emergency contact if: you have any medication questions Follow-up/Referrals: Linda Quigley CRNP [Primary Care Provider] - Diet: Carb Consistent or DM2 and Heart Healthy Addtl Attending Provider Instructions: You were admitted for the flu. Thankfully you improved but still require oxygen 2 liters during the day and at night. We anticipate you should go back on room air once you completely recover. Though we want you to continue using the oxygen until your PCP clears you to stop using it. You may need a repeat overnight sleep study once you recover. Continue taking tamiflu twice a day, and see your PCP in 1-2 weeks. Pending Studies at Discharge: No Stand-Alone Forms: [facility], Smoking Cessation Medications and DC Order Prescriptions: New oseltamivir [Tamiflu] 75 mg Capsule 75 mg PO BID Qty: 7 0RF Continued benztropine 1 mg tablet 1 mg PO BID Qty: 180 2RF Rx Instructions: Take one tablet by mouth twice a day. calcium carbonate-vitamin D3 [Calcium 600 + D(3)] 600 mg-10 mcg (400 unit) tablet 1 tab PO BID Rx Instructions: Take one tablet by mouth twice a day. divalproex 500 mg tablet,delayed release (DR/EC) 500 mg PO BID Qty: 180 1RF Rx Instructions: Take one tablet by mouth twice daily. docusate sodium 100 mg capsule 100 mg PO BID Rx Instructions: Take one capsule by mouth twice daily. loratadine 10 mg tablet 10 mg PO DAILY Qty: 30 11RF Rx Instructions: Take one tablet by mouth once daily. [place]-3 Fish Oil 300-1,000 mg capsule 1 cap PO DAILY Qty: 30 5RF Rx Instructions: Take one capsule by mouth daily. Travatan Z 0.004 % drops 1 drp OPHTHALMIC (EYE) HS Rx Instructions: Instill 1 drop into each eye at bedtime. acetaminophen 500 mg tablet 1,000 mg PO Q8H PRN (Reason: pain) Qty: 30 0RF Rx Instructions: Take two tablets (1000MG) by mouth every 8HRS as needed for pain. simethicone 125 mg tablet,chewable 125 mg PO TID PRN (Reason: gas) Qty: 90 3RF Rx Instructions: Take one tablet by mouth three times daily as needed. loperamide [Imodium A-D] 2 mg capsule 2 mg PO Q6H PRN (Reason: loose stool) Qty: 20 3RF Rx Instructions: Take one capsule by mouth every 2HRS as needed for diarrhea. MAX:8 capsules in 24HRS. prochlorperazine maleate [Compazine] 10 mg tablet 10 mg PO Q8H Qty: 20 2RF Rx Instructions: Take one tablet by mouth every 8HRS as needed. levothyroxine 50 mcg tablet 50 mcg PO DAILY Qty: 90 3RF Rx Instructions: Take one tablet by mouth once daily. Myrbetriq 50 mg tablet extended release 24 hr 50 mg PO DAILY Qty: 30 11RF Rx Instructions: Take one tablet by mouth daily. celecoxib 100 mg capsule 100 mg PO BID Qty: 60 2RF Rx Instructions: pt aware dose change omeprazole 20 mg capsule,delayed release(DR/EC) 20 mg PO BID Qty: 60 5RF Rx Instructions: pt aware sig change atorvastatin 80 mg tablet 80 mg PO DAILY Qty: 30 11RF Rx Instructions: Take one tablet by mouth daily. Metamucil 3.4 gram/5.4 gram powder 1 tbsp PO DAILY Qty: 660 1RF Rx Instructions: mix into at least 8 oz of water or juice before administering polyethylene glycol 3350 [Miralax] 17 gram/dose powder 17 g PO DAILY haloperidol 1 mg tablet 1 mg PO UD losartan 50 mg tablet 50 mg PO DAILY Rybelsus 7 mg tablet 7 mg PO DAILY dorzolamide-timolol 22.3-6.8 mg/mL drops 1 drp ophthalmic (eye) BID sennosides [senna] 8.6 mg tablet 8.6 mg PO DAILY PRN (Reason: constipation) Rx Instructions: Take one tablet by mouth once daily in the AM for constipation. Changed mirtazapine 30 mg tablet 15 mg PO DAILY Qty: 0 0RF Discharge Orders: Discharge Order (Routine); Ordered 05/27/24 Ordered By: Bobby Kemp/Other Patient Handouts: High Blood Sugar (Hyperglycemia), Hypoglycemia (Low Blood Sugar), Managing Type 2 Diabetes Admission Data Admit Date/Time: 05/21/24 23:13 Attending Provider: Bobby Mancuso Admit Provider: Chepe Mane Primary Care Provider: Linda Quigley Other Providers: Lion Montano; [facility] Other Interventions: Discharge Summary Assessment (RN) Last Done: 05/27/24 14:14 Hospital Stay Data Consultations 05/21/24 23:17 ED Decision to Admit Stat Pending Results Patient Have Any Pending Studies at Discharge: No Discharge Instructions Given to Patient (Per Discharging Provider) You were admitted for the flu. Thankfully you improved but still require oxygen 2 liters during the day and at night. We anticipate you should go back on room air once you completely recover. Though we want you to continue using the oxygen until your PCP clears you to stop using it. You may need a repeat overnight sleep study once you recover. Continue taking tamiflu twice a day, and see your PCP in 1-2 weeks. Coding Diagnoses Sepsis A41.9 Influenza A J10.1 Acute hypoxic respiratory failure J96.01 Type 2 diabetes mellitus without complication, without long-term current use of insulin E11.9 Diabetes mellitus nursing home insulin use: without oil heaterman use Diabetes mellitus complication status: without complication GERD (gastroesophageal reflux disease) K21.9 Primary hypertension I10 Hypertension type: primary hypertension Schizoaffective disorder, unspecified type F25.9 Schizoaffective disorder type: unspecified"
== END 2024-05-27 15:23 | disposition home health service (06) | DRG 871 ==
LOC: ED 21:24 → 2W 23:13 → SUATTDRO 23:13 → 2W 05-22 00:55